=== PATIENT | male | born 1970 | race Caucasian/White ===

== ENCOUNTER 2018-11-06 21:15 | Observation (INO) ==
[2018-11-06] MEDS ORDERED: ASPIRIN 325 MG TABLET PO STA (22:16)
[2018-11-06] MEDS ORDERED: ONDANSETRON 4 MG/2 ML VIAL IV STA (22:16)
[2018-11-06] MEDS ORDERED: MORPHINE 4 MG/1 ML VIAL IV STA (22:16)
[2018-11-06] MEDS ORDERED: NITROGLYCERIN 2% OINT 1 INCH/GM PACK TOP STA (22:16)
[2018-11-06] MEDS ORDERED: ALUM/MAG/SIMETH/LIDO VISC 1:1 30 ML BOTTLE PO STA (22:16)
[2018-11-06 22:45] LABS: Alanine Aminotransferase 241 U/L (16-61); Albumin 3.4 G/DL (3.4-5.0); Alkaline Phosphatase 118 U/L (45-117); Aspartate Amino Transferase 165 U/L (0-37); Blood Urea Nitrogen 12 MG/DL (7-18); Calcium 9.2 MG/DL (8.5-10.1); Glucose 178 MG/DL (74-106); Osmolality,Calculated 284.3 MOS/KG (273-304); Total Protein 6.9 G/DL (6.4-8.3)
[2018-11-06 22:47] LABS: Troponin I 0.063 NG/ML (0.00-0.045)
[2018-11-06 23:36] LABS: Basophils # 0.1 10*3/uL (0.0-0.2); Basophils % 0.8 % (0.0-0.8); Eosinophils # 0.2 10*3/uL (0.0-0.87); Eosinophils % 1.2 % (0.00-10.9); Hematocrit 43.1 VOL% (42.0-52.0); Hemoglobin 13.1 GM/DL (14.0-18.0); Immature Granulocytes % 2.5 %; Immature Granulocytes Absolute 0.32 #; Lymphocytes # 2.3 10*3/uL (1.4-4.0); Lymphocytes % 17.6 % (21.2-54.2); Mean Corpuscular HGB Conc 30.4 GM/DL (32-36); Mean Corpuscular Volume 86.9 FL (87-102); Mean Platelet Volume 11.4 FL (9.6-12.0); Monocytes % 11.2 % (1.7-12.7); Neutrophils % 66.7 % (38.7-73.9); Platelet Count 330 T/CUMM (130-400); Red Blood Count 4.96 MC/CUMM (3.8-5.5); Red Cell Distribution Width 13.7 % (9.3-17.3); White Blood Count 12.9 T/CUMM (4-12)
[2018-11-06 23:44] LABS: INR 0.9; PT Patient Result 10.3 SECS
[2018-11-07] MEDS ORDERED: MAGNESIUM SULF RIDER 2 GM in PREMIX 1 EACH IV PRN (00:01)
[2018-11-07] MEDS ORDERED: BISACODYL 5 MG TABLET PO PRN (00:01)
[2018-11-07] MEDS ORDERED: guaiFENesin/DM ER 600-30 MG TABLET PO PRN (00:01)
[2018-11-07] MEDS ORDERED: MORPHINE 4 MG/1 ML VIAL IV PRN (00:01)
[2018-11-07] MEDS ORDERED: ACETAMINOPHEN 325 MG TABLET PO PRN (00:01)
[2018-11-07] MEDS ORDERED: diphenhydrAMINE CAP 25 MG CAPSULE PO PRN (00:01)
[2018-11-07] MEDS ORDERED: MAGNESIUM SULF RIDER 4 GM in PREMIX 1 EACH IV PRN (00:01)
[2018-11-07] MEDS ORDERED: ONDANSETRON 4 MG/2 ML VIAL IV PRN (00:01)
[2018-11-07] MEDS ORDERED: ZALEPLON 5 MG CAPSULE PO PRN (00:01)
[2018-11-07] MEDS ORDERED: POTASSIUM CHLORIDE 20 MEQ TABLET PO PRN (00:01)
[2018-11-07] MEDS ORDERED: NICOTINE 21 MG/24 HR PATCH TRANSDERM PRN (00:01)
[2018-11-07 00:30] LABS: Risk Ratio 4.79; Thyroid Stimulating Hormone 1.42 uIU/ml (0.358-3.74); VLDL CHOLESTEROL 39.4 MG/DL
[2018-11-07 01:53] LABS: ABG Base Excess 0.7 MMOL/L (-2.5-2.5); ABG Oxygen Saturation 96.1 % (95-100); ABG PCO2 40.7 MM HG (35-48); ABG PH 7.405 (7.35-7.45); ABG PO2 84.7 MM HG (80-95); ABG TCO2 21.9 MMOL/L (23-27); Allen Test Positive; Pt O2 Delivery Device Room Air
[2018-11-07 02:30] LABS: Albumin 3.3 G/DL (3.4-5.0); Bilirubin,Direct 0.24 MG/DL (0.0-0.20); Bilirubin,Indirect 0.9 MG/DL (0.0-1.0); Bilirubin,Total 1.1 MG/DL (0.2-1.0); Total Protein 6.3 G/DL (6.4-8.3)
[2018-11-07 03:11] LABS: Basophils # 0.2 10*3/uL (0.0-0.2); Basophils % 1.3 % (0.0-0.8); Eosinophils # 0.2 10*3/uL (0.0-0.87); Eosinophils % 1.9 % (0.00-10.9); Hematocrit 42.7 VOL% (42.0-52.0); Immature Granulocytes % 2.9 %; Immature Granulocytes Absolute 0.34 #; Lymphocytes % 25.5 % (21.2-54.2); Mean Corpuscular HGB Conc 30.4 GM/DL (32-36); Mean Platelet Volume 11.4 FL (9.6-12.0); Neutrophils % 56.4 % (38.7-73.9); Platelet Count 327 T/CUMM (130-400); Red Blood Count 4.91 MC/CUMM (3.8-5.5); Red Cell Distribution Width 13.8 % (9.3-17.3); White Blood Count 11.6 T/CUMM (4-12)
[2018-11-07 03:28] LABS: Albumin 3.2 G/DL (3.4-5.0); Bilirubin,Total 1.3 MG/DL (0.2-1.0); Calcium 8.5 MG/DL (8.5-10.1); Osmolality,Calculated 282.5 MOS/KG (273-304); Total Protein 6.4 G/DL (6.4-8.3)
[2018-11-07 04:02] LABS: Hepatitis B Core IgM Quant 0.11 Index; Hepatitis B Surface Ag Quant < 0.10 Index; Hepatitis B Surface Ag Result Negative (Negative); Hepatitis C Virus Ab Quant 0.07 Index; Hepatitis C Virus Ab Result Negative (Negative)
[2018-11-07] MEDS ORDERED: FUROSEMIDE 40 MG/4 ML VIAL IV ONE (08:01)
[2018-11-07] MEDS: ASPIRIN 325 MG TABLET PO SCH (09:16)
[2018-11-07] MEDS: PANTOPRAZOLE 40 MG TABLET PO SCH (09:16)
[2018-11-07] MEDS: ENOXAPARIN 40 MG/0.4 ML SYRINGE SUBCUT SCH (09:16)
[2018-11-07] MEDS: CARVEDILOL 6.25 MG TABLET PO SCH ×2 (09:16→20:43)
[2018-11-08 00:08] LABS: Barbiturates Screen,Urine Negative (Negative); Benzodiazepines Screen,Urine Negative (Negative); Cannabinoid Screen,Urine Negative (Negative); Opiate Screen,Urine Negative (Negative); Phencyclidine Screen,Urine Negative (Negative)
[2018-11-08 04:37] LABS: Basophils # 0.2 10*3/uL (0.0-0.2); Basophils % 1.7 % (0.0-0.8); Eosinophils # 0.4 10*3/uL (0.0-0.87); Eosinophils % 3.6 % (0.00-10.9); Hematocrit 44.2 VOL% (42.0-52.0); Hemoglobin 13.6 GM/DL (14.0-18.0); Immature Granulocytes % 4.9 %; Lymphocytes # 2.5 10*3/uL (1.4-4.0); Mean Corpuscular HGB Conc 30.8 GM/DL (32-36); Mean Corpuscular Volume 86.7 FL (87-102); Mean Platelet Volume 12.2 FL (9.6-12.0); Monocytes % 9.9 % (1.7-12.7); Neutrophils % 55.9 % (38.7-73.9); Platelet Count 346 T/CUMM (130-400); Red Cell Distribution Width 13.6 % (9.3-17.3); White Blood Count 10.3 T/CUMM (4-12)
[2018-11-08 04:57] LABS: Calcium 8.2 MG/DL (8.5-10.1); Osmolality,Calculated 288.7 MOS/KG (273-304)
[2018-11-08] MEDS: ENOXAPARIN 40 MG/0.4 ML SYRINGE SUBCUT SCH (10:35)
[2018-11-08] MEDS ORDERED: DIAZEPAM 5 MG TABLET PO ONE (12:00)
[2018-11-08] MEDS ORDERED: diphenhydrAMINE CAP 25 MG CAPSULE PO PRN (12:00)
[2018-11-08] MEDS ORDERED: GLUCAGON 1 MG VIAL IM PRN (13:27)
[2018-11-08] MEDS ORDERED: DEXTROSE 50% 25 GM/50 ML VIAL IV PRN (13:27)
[2018-11-08] MEDS: ASPIRIN 325 MG TABLET PO SCH (15:23)
[2018-11-08] MEDS: CARVEDILOL 6.25 MG TABLET PO SCH (15:23)
[2018-11-08] MEDS: PANTOPRAZOLE 40 MG TABLET PO SCH (15:23)
[2018-11-08] MEDS: INSULIN LISPRO 100 UNIT/ML SUBCUT SCH ×2 (15:29→21:49)
[2018-11-08] MEDS ORDERED: POTASSIUM CHLORIDE RIDER 10 MEQ in PREMIX 1 EACH IV PRN (15:41)
[2018-11-08] MEDS ORDERED: MAGNESIUM SULF RIDER 2 GM in PREMIX 1 EACH IV PRN (15:41)
[2018-11-08] MEDS: CARVEDILOL 12.5 MG TABLET PO SCH (21:48)
[2018-11-08] MEDS: EZETIMIBE 10 MG TABLET PO SCH (21:48)
[2018-11-08] MEDS: OMEGA 3 ACID ETHYL ESTERS 1 GM CAPSULE PO SCH (21:49)
[2018-11-09 04:35] LABS: Basophils # 0.2 10*3/uL (0.0-0.2); Basophils % 1.4 % (0.0-0.8); Eosinophils # 0.4 10*3/uL (0.0-0.87); Eosinophils % 3.4 % (0.00-10.9); Hematocrit 46.2 VOL% (42.0-52.0); Hemoglobin 14.1 GM/DL (14.0-18.0); Immature Granulocytes % 4.4 %; Immature Granulocytes Absolute 0.57 #; Lymphocytes # 2.9 10*3/uL (1.4-4.0); Lymphocytes % 22.6 % (21.2-54.2); Mean Corpuscular HGB Conc 30.5 GM/DL (32-36); Mean Corpuscular Volume 87.5 FL (87-102); Mean Platelet Volume 11.8 FL (9.6-12.0); Monocytes % 11.2 % (1.7-12.7); Platelet Count 347 T/CUMM (130-400); Red Blood Count 5.28 MC/CUMM (3.8-5.5); Red Cell Distribution Width 13.8 % (9.3-17.3)
[2018-11-09 05:01] LABS: Calcium 8.4 MG/DL (8.5-10.1); Osmolality,Calculated 287.4 MOS/KG (273-304)
[2018-11-09 05:30] LABS: Anisocytosis Slight; Band Neutrophils 2 % (0-10); Eosinophils 2 % (0-10); Lymphocytes 30 % (20-55); Metamyelocytes 1 %; Microcytosis 2+; Myelocytes 2 %; Segmented Neutrophils 53 % (50-85); Total Cells Counted 100
[2018-11-09 05:31] LABS: Platelet Estimate Normal; Polychromasia Slight
[2018-11-09] MEDS: ENOXAPARIN 40 MG/0.4 ML SYRINGE SUBCUT SCH ×2 (08:46→12:40)
[2018-11-09] MEDS: ASPIRIN 325 MG TABLET PO SCH ×2 (08:46→12:40)
[2018-11-09] MEDS: INSULIN LISPRO 100 UNIT/ML SUBCUT SCH ×4 (08:47→20:41)
[2018-11-09] MEDS: PANTOPRAZOLE 40 MG TABLET PO SCH (08:47)
[2018-11-09] MEDS: OMEGA 3 ACID ETHYL ESTERS 1 GM CAPSULE PO SCH ×2 (08:47→20:42)
[2018-11-09] MEDS: CARVEDILOL 12.5 MG TABLET PO SCH ×2 (08:47→20:42)
[2018-11-09] MEDS ORDERED: HEPARIN/NACL 0.9% 2 UNITS/ML 1,000 ML IV ONE (12:23)
[2018-11-09] MEDS ORDERED: LIDOCAINE 1%/EPI INJ 20 ML VIAL ONE (12:23)
[2018-11-09] MEDS ORDERED: DIAZEPAM 5 MG TABLET PO ONE (12:30)
[2018-11-09] MEDS ORDERED: diphenhydrAMINE CAP 25 MG CAPSULE PO ONE (12:30)
[2018-11-09] MEDS ORDERED: fentaNYL 100 MCG/2 ML VIAL ONE (13:42)
[2018-11-09] MEDS ORDERED: glyBURIDE/METFORMIN 2.5-500 MG TABLET PO SCH (17:00)
[2018-11-09] MEDS: SACUBITRIL/VALSARTAN 49-51 MG TABLET PO SCH (20:42)
[2018-11-09] MEDS: EZETIMIBE 10 MG TABLET PO SCH (20:42)
[2018-11-10 07:51] VITALS: BP 99/70
[2018-11-10] MEDS ORDERED: glyBURIDE/METFORMIN 2.5-500 MG TABLET PO SCH (08:00)
[2018-11-10] MEDS ORDERED: metFORMIN 500 MG TABLET PO SCH (08:00)
[2018-11-10] MEDS ORDERED: glyBURIDE 2.5 MG TABLET PO SCH (08:00)
[2018-11-10] MEDS ORDERED: ASPIRIN EC 81 MG TABLET PO SCH (09:00)
[2018-11-10] MEDS ORDERED: FUROSEMIDE 40 MG TABLET PO SCH (09:00)
[2018-11-10] MEDS: ENOXAPARIN 40 MG/0.4 ML SYRINGE SUBCUT SCH (09:12)
[2018-11-10] MEDS: INSULIN LISPRO 100 UNIT/ML SUBCUT SCH ×2 (09:12→11:56)
[2018-11-10] MEDS: OMEGA 3 ACID ETHYL ESTERS 1 GM CAPSULE PO SCH (09:13)
[2018-11-10] MEDS: SACUBITRIL/VALSARTAN 49-51 MG TABLET PO SCH (09:13)
[2018-11-10] MEDS: CARVEDILOL 12.5 MG TABLET PO SCH (09:13)
[2018-11-10] MEDS: PANTOPRAZOLE 40 MG TABLET PO SCH (09:13)
== END 2018-11-10 12:15 | disposition home or self-care (01) ==
LOC: N.ED 21:15 → N.EDINP 21:15 → SUATTDRO 11-07 00:01 → N.TELES 11-07 00:31
PROVIDERS: ADMIT Internal Medicine; ATTEND Emergency Medicine
PROC: CLCCHCL (ICD-10-PCS; 2018-11-09 13:45)

== ENCOUNTER 2019-05-31 06:17 | Observation (INO) ==
[2019-05-31] MEDS ORDERED: FUROSEMIDE 100 MG/10 ML VIAL IV STA (06:44)
[2019-05-31 06:54] LABS: Basophils # 0.1 10*3/uL (0.0-0.2); Basophils % 0.9 % (0.0-0.8); Eosinophils # 0.2 10*3/uL (0.0-0.87); Eosinophils % 2.1 % (0.00-10.9); Hematocrit 48.8 VOL% (42.0-52.0); Hemoglobin 15.7 GM/DL (14.0-18.0); Immature Granulocytes % 1.4 %; Immature Granulocytes Absolute 0.16 #; Lymphocytes # 2.7 10*3/uL (1.4-4.0); Lymphocytes % 23.5 % (21.2-54.2); Mean Corpuscular HGB Conc 32.2 GM/DL (32-36); Mean Corpuscular Volume 84.6 FL (87-102); Mean Platelet Volume 11.4 FL (9.6-12.0); Monocytes % 11.1 % (1.7-12.7); Platelet Count 293 T/CUMM (130-400); Red Blood Count 5.77 MC/CUMM (3.8-5.5); Red Cell Distribution Width 13.4 % (9.3-17.3); White Blood Count 11.7 T/CUMM (4-12)
[2019-05-31 07:18] LABS: Albumin 3.4 G/DL (3.4-5.0); Bilirubin,Total 1.7 MG/DL (0.2-1.0); Osmolality,Calculated 274.4 MOS/KG (273-304); Total Protein 7.1 G/DL (6.4-8.3)
[2019-05-31] MEDS ORDERED: MAGNESIUM SULF RIDER 4 GM in PREMIX 1 EACH IV PRN (09:17)
[2019-05-31] MEDS ORDERED: MAGNESIUM SULF RIDER 2 GM in PREMIX 1 EACH IV PRN (09:17)
[2019-05-31] MEDS ORDERED: guaiFENesin/DM ER 600-30 MG TABLET PO PRN (09:17)
[2019-05-31] MEDS ORDERED: MORPHINE 4 MG/1 ML VIAL IV PRN (09:17)
[2019-05-31] MEDS ORDERED: GLUCAGON 1 MG VIAL IM PRN (09:17)
[2019-05-31] MEDS ORDERED: DEXTROSE 50% 25 GM/50 ML VIAL IV PRN (09:17)
[2019-05-31] MEDS ORDERED: ACETAMINOPHEN 325 MG TABLET PO PRN (09:17)
[2019-05-31] MEDS ORDERED: ONDANSETRON 4 MG/2 ML VIAL IV PRN (09:17)
[2019-05-31] MEDS ORDERED: NICOTINE 21 MG/24 HR PATCH TRANSDERM PRN (09:17)
[2019-05-31] MEDS: ASPIRIN EC 81 MG TABLET PO SCH (10:57)
[2019-05-31] MEDS: ENOXAPARIN 40 MG/0.4 ML SYRINGE SUBCUT SCH (10:57)
[2019-05-31] MEDS: carvediloL 6.25 MG TABLET PO SCH ×2 (10:57→21:16)
[2019-05-31] MEDS: INSULIN LISPRO 100 UNIT/ML SUBCUT SCH ×3 (13:05→21:17)
[2019-05-31] MEDS ORDERED: FUROSEMIDE 40 MG/4 ML VIAL IV SCH (16:00)
[2019-05-31] MEDS ORDERED: EZETIMIBE 10 MG TABLET PO SCH (21:00)
[2019-06-01 04:59] LABS: Barbiturates Screen,Urine Negative (Negative); Benzodiazepines Screen,Urine Negative (Negative); Cannabinoid Screen,Urine Negative (Negative); Opiate Screen,Urine Negative (Negative); Phencyclidine Screen,Urine Negative (Negative)
[2019-06-01 05:06] LABS: Basophils # 0.1 10*3/uL (0.0-0.2); Basophils % 1.3 % (0.0-0.8); Eosinophils # 0.3 10*3/uL (0.0-0.87); Eosinophils % 2.7 % (0.00-10.9); Hematocrit 51.3 VOL% (42.0-52.0); Hemoglobin 16.2 GM/DL (14.0-18.0); Immature Granulocytes % 1.4 %; Immature Granulocytes Absolute 0.16 #; Lymphocytes # 3.3 10*3/uL (1.4-4.0); Lymphocytes % 29.9 % (21.2-54.2); Mean Corpuscular HGB Conc 31.6 GM/DL (32-36); Mean Corpuscular Volume 85.1 FL (87-102); Mean Platelet Volume 11.3 FL (9.6-12.0); Monocytes % 11.7 % (1.7-12.7); Platelet Count 287 T/CUMM (130-400); Red Blood Count 6.03 MC/CUMM (3.8-5.5); Red Cell Distribution Width 13.3 % (9.3-17.3); White Blood Count 11.1 T/CUMM (4-12)
[2019-06-01 05:36] LABS: Calcium 8.5 MG/DL (8.5-10.1); Osmolality,Calculated 277.1 MOS/KG (273-304)
[2019-06-01 05:44] LABS: Albumin 3.2 G/DL (3.4-5.0); Bilirubin,Total 1.9 MG/DL (0.2-1.0); Calcium 8.5 MG/DL (8.5-10.1); Thyroid Stimulating Hormone 0.611 uIU/ml (0.358-3.74); Total Protein 6.6 G/DL (6.4-8.3)
[2019-06-01 07:58] VITALS: BP 115/84
[2019-06-01] MEDS ORDERED: FUROSEMIDE 40 MG TABLET PO SCH (08:00)
[2019-06-01] MEDS: INSULIN LISPRO 100 UNIT/ML SUBCUT SCH ×2 (08:15→12:34)
[2019-06-01] MEDS: carvediloL 6.25 MG TABLET PO SCH (08:17)
[2019-06-01] MEDS: ASPIRIN EC 81 MG TABLET PO SCH (08:17)
[2019-06-01] MEDS ORDERED: PANTOPRAZOLE 40 MG TABLET PO SCH (09:00)
[2019-06-01] MEDS ORDERED: SACUBITRIL/VALSARTAN 49-51 MG TABLET PO SCH (09:00)
[2019-06-01] MEDS: ENOXAPARIN 40 MG/0.4 ML SYRINGE SUBCUT SCH (09:23)
== END 2019-06-01 12:27 | disposition home or self-care (01) ==
LOC: N.EDINP 06:17 → N.ED 06:17 → N.TELEN 10:13
PROVIDERS: ADMIT Internal Medicine; ATTEND Internal Medicine

== ENCOUNTER 2020-01-17 19:28 | Observation (INO) ==
[2020-01-17 20:04] LABS: Basophils # 0.1 10*3/uL (0.0-0.2); Basophils % 0.8 % (0.0-0.8); Eosinophils # 0.2 10*3/uL (0.0-0.87); Eosinophils % 1.5 % (0.00-10.9); Hematocrit 51.7 VOL% (42.0-52.0); Hemoglobin 16.6 GM/DL (14.0-18.0); Immature Granulocytes % 0.8 %; Immature Granulocytes Absolute 0.11 #; Lymphocytes # 2.8 10*3/uL (1.4-4.0); Mean Corpuscular HGB Conc 32.1 GM/DL (32-36); Mean Corpuscular Volume 86.3 FL (87-102); Mean Platelet Volume 11.5 FL (9.6-12.0); Monocytes % 8.9 % (1.7-12.7); Platelet Count 310 T/CUMM (130-400); Red Blood Count 5.99 MC/CUMM (3.8-5.5); White Blood Count 13.8 T/CUMM (4-12)
[2020-01-17 20:22] LABS: Albumin 3.5 G/DL (3.4-5.0); Bilirubin,Total 1.4 MG/DL (0.2-1.0); Calcium 9.2 MG/DL (8.5-10.1); Osmolality,Calculated 272.1 MOS/KG (273-304); Total Protein 7.4 G/DL (6.4-8.3)
[2020-01-17] MEDS ORDERED: ASPIRIN CHEW 81 MG TABLET PO STA (21:03)
[2020-01-17] MEDS ORDERED: FUROSEMIDE 100 MG/10 ML VIAL IV STA (21:03)
[2020-01-17] MEDS ORDERED: ASPIRIN 325 MG TABLET ONE (21:29)
[2020-01-17] MEDS ORDERED: ENOXAPARIN 120 MG/0.8 ML SYRINGE SUBCUT STA (22:39)
[2020-01-17] MEDS ORDERED: ACETAMINOPHEN 325 MG TABLET PO PRN (22:39)
[2020-01-17] MEDS ORDERED: NICOTINE 21 MG/24 HR PATCH TRANSDERM PRN (22:39)
[2020-01-17] MEDS ORDERED: diphenhydrAMINE CAP 25 MG CAPSULE PO PRN (22:39)
[2020-01-17] MEDS ORDERED: GLUCAGON 1 MG VIAL IM PRN ×2 (22:39)
[2020-01-17] MEDS ORDERED: MORPHINE 4 MG/1 ML VIAL IV PRN (22:39)
[2020-01-17] MEDS ORDERED: ONDANSETRON 4 MG/2 ML VIAL IV PRN (22:39)
[2020-01-17] MEDS ORDERED: guaiFENesin/DM ER 600-30 MG TABLET PO PRN (22:39)
[2020-01-17] MEDS ORDERED: DEXTROSE 50% 25 GM/50 ML VIAL IV PRN ×2 (22:39)
[2020-01-17] MEDS ORDERED: ZALEPLON 5 MG CAPSULE PO PRN (22:39)
[2020-01-17] MEDS ORDERED: hydrALAZINE 20 MG/1 ML VIAL IV PRN (22:39)
[2020-01-17] MEDS ORDERED: AZITHROMYCIN INJ 500 MG in SODIUM CHLORIDE 0.9% 250 ML IV SCH (23:30)
[2020-01-18] MEDS: cefTRIAXone 1,000 MG in SYRINGE 1 EACH IV SCH ×2 (02:00→21:35)
[2020-01-18 02:45] LABS: Ferritin 47.6 ng/ml (26-388)
[2020-01-18 06:48] LABS: Basophils # 0.1 10*3/uL (0.0-0.2); Basophils % 0.7 % (0.0-0.8); Eosinophils # 0.2 10*3/uL (0.0-0.87); Eosinophils % 1.3 % (0.00-10.9); Hemoglobin 15.9 GM/DL (14.0-18.0); Immature Granulocytes % 1.2 %; Immature Granulocytes Absolute 0.15 #; Lymphocytes # 2.2 10*3/uL (1.4-4.0); Lymphocytes % 17.1 % (21.2-54.2); Mean Corpuscular HGB Conc 32.4 GM/DL (32-36); Mean Corpuscular Volume 85.4 FL (87-102); Mean Platelet Volume 11.5 FL (9.6-12.0); Monocytes % 10.2 % (1.7-12.7); Neutrophils % 69.5 % (38.7-73.9); Platelet Count 257 T/CUMM (130-400); Red Blood Count 5.74 MC/CUMM (3.8-5.5); White Blood Count 12.8 T/CUMM (4-12)
[2020-01-18] MEDS ORDERED: FUROSEMIDE 40 MG/4 ML VIAL IV SCH (08:00)
[2020-01-18] MEDS: AZITHROMYCIN 250 MG TABLET PO SCH (09:07)
[2020-01-18] MEDS: PANTOPRAZOLE 40 MG TABLET PO SCH (09:07)
[2020-01-18] MEDS: carvediloL 6.25 MG TABLET PO SCH ×2 (09:07→16:32)
[2020-01-18] MEDS: DOCUSATE SODIUM 100 MG CAPSULE PO SCH ×2 (09:07→20:30)
[2020-01-18] MEDS: POTASSIUM CHLORIDE 20 MEQ TABLET PO SCH (09:07)
[2020-01-18] MEDS: ASPIRIN EC 81 MG TABLET PO SCH (09:07)
[2020-01-18] MEDS: SACUBITRIL/VALSARTAN 49-51 MG TABLET PO SCH ×2 (09:29→20:30)
[2020-01-18] MEDS: INSULIN LISPRO 100 UNIT/ML SUBCUT SCH ×4 (09:30→21:35)
[2020-01-18 20:54] LABS: Barbiturates Screen,Urine Negative (Negative); Benzodiazepines Screen,Urine Negative (Negative); Cannabinoid Screen,Urine Negative (Negative); Opiate Screen,Urine Negative (Negative); Phencyclidine Screen,Urine Negative (Negative)
[2020-01-18] MEDS ORDERED: ATORVASTATIN 20 MG TABLET PO SCH (21:00)
[2020-01-18] MEDS ORDERED: EZETIMIBE 10 MG TABLET PO SCH (21:00)
[2020-01-19] MEDS: INSULIN LISPRO 100 UNIT/ML SUBCUT SCH ×2 (08:52→13:53)
[2020-01-19] MEDS: SACUBITRIL/VALSARTAN 49-51 MG TABLET PO SCH (08:53)
[2020-01-19] MEDS: carvediloL 6.25 MG TABLET PO SCH (08:53)
[2020-01-19] MEDS: POTASSIUM CHLORIDE 20 MEQ TABLET PO SCH (08:53)
[2020-01-19] MEDS: ASPIRIN EC 81 MG TABLET PO SCH (08:54)
[2020-01-19] MEDS: AZITHROMYCIN 250 MG TABLET PO SCH (08:54)
[2020-01-19] MEDS: DOCUSATE SODIUM 100 MG CAPSULE PO SCH (08:54)
[2020-01-19] MEDS: PANTOPRAZOLE 40 MG TABLET PO SCH (08:54)
[2020-01-19] MEDS ORDERED: FUROSEMIDE 40 MG TABLET PO SCH (09:00)
[2020-01-19 17:48] VITALS: BP 138/67
== END 2020-01-19 17:20 | disposition home or self-care (01) ==
LOC: N.ED 19:28 → N.EDINP 19:28 → SUATTDRO 22:53 → N.2E 23:50 → N.TELES 01-18 02:53
PROVIDERS: ADMIT Emergency Medicine; ATTEND Internal Medicine